=== PATIENT | male | born 1985 | race African-American/Black ===

== ENCOUNTER 2017-09-13 13:06 | Outpatient (CLI) | payer BC ==
[2017-09-13 19:16] LABS: BASOPHILS % (AUTO) 0.7 % (0.0-2.0); HEMATOCRIT 45 % (39-51); HEMOGLOBIN 15.2 g/dL (13.5-17.5); LYMPHOCYTES # (AUTO) 3.2 /CMM (0.8-4.8); LYMPHOCYTES % (AUTO) 51.2 % (20.0-44.0); MEAN CORPUSCULAR HGB CONC 34 g/dl (31.0-36.0); MEAN CORPUSCULAR VOLUME 84 fL (80-96); MONOCYTES # (AUTO) 0.5 /CMM (0.1-1.30); MONOCYTES % (AUTO) 7.5 % (2.0-12.0); NEUTROPHILS # (AUTO) 2.2 /CMM (1.8-8.9); NEUTROPHILS % (AUTO) 35.6 % (43.0-81.0); PLATELET COUNT (AUTO) 270 /CMM (150-450); RDW COEFFICIENT OF VARIATION 12.8 (11.5-15.0); RED BLOOD CELL COUNT(AUTO) 5.37 MIL/uL (4.5-6.0); WHITE BLOOD COUNT (AUTO) 6.2 K/uL (4.3-11.0)
[2017-09-13 19:25] LABS: APPEARANCE,URINE CLEAR (CLEAR); BILIRUBIN,URINE NEGATIVE (NEGATIVE); BLOOD, URINE NEGATIVE Ery/uL (NEGATIVE); COLOR,URINE YELLOW (YELLOW); KETONES,URINE NEGATIVE (NEGATIVE); LEUKOCYTE ESTERASE ,URINE NEGATIVE (NEGATIVE); NITRITE, URINE NEGATIVE (NEGATIVE); PROTEIN,URINE NEGATIVE (NEGATIVE); UGLUCOSE NEGATIVE (NEGATIVE); UROBILINOGEN,URINE 0.2 EU/dL (0.2)
[2017-09-13 19:32] LABS: ALBUMIN 4.1 g/dL (3.4-5.0); BILIRUBIN,TOTAL 1.1 mg/dL (0.2-1.0); CALCIUM, SERUM 9.4 mg/dL (8.5-10.1); CREATININE 0.4 mg/dL (0.6-1.3); POTASSIUM 3.7 mmol/L (3.5-5.1)
== END 2017-09-13 23:59 | disposition home or self-care (01) ==
LOC: LAB 13:06
PROVIDERS: ATTEND Internal Medicine
DX: Z00.01 Encounter for general adult medical examination with abnormal findings (principal); R79.89 Other specified abnormal findings of blood chemistry
CPT/HCPCS: 36415; 80053-TC; 80061-TC; 81000-TC; 82306; 85025-TC

== ENCOUNTER 2018-05-19 11:22 | Outpatient (CLI) | payer BC | END 2018-05-19 23:59 | disposition home or self-care (01) | LOC: MRI 11:22 | PROVIDERS: ATTEND Internal Medicine | DX: M48.07 Spinal stenosis, lumbosacral region (principal); M51.24 Other intervertebral disc displacement, thoracic region | CPT/HCPCS: 72146-TC; 72148-TC ==

== ENCOUNTER 2018-07-01 16:22 | Outpatient (CLI) | payer BC ==
[2018-07-02 11:10] LABS: VARICELLA ZOSTER IgG 754 index (Immune >165)
== END 2018-07-01 23:59 | disposition home or self-care (01) ==
LOC: LAB 16:22
PROVIDERS: ATTEND Internal Medicine
DX: Z11.59 Encounter for screening for other viral diseases (principal)
CPT/HCPCS: 36415; 86706; 86765; 86787; 87340

== ENCOUNTER 2019-11-03 01:25 | Emergency (ER) | payer BC, OTHER ==
[~2019-11-03] VITALS: Ht 172.7 cm; Wt 77.1 kg
[2019-11-03 01:28] VITALS: BP 118/75
== END 2019-11-03 02:18 | disposition home or self-care (01) ==
LOC: ER 01:30
DX: Z11.59 Encounter for screening for other viral diseases (principal)
CPT/HCPCS: 99283; U0003

== ENCOUNTER 2019-11-24 23:14 | Emergency (ER) | payer OTHER ==
[~2019-11-24] VITALS: Ht 172.7 cm; Wt 77.1 kg
[2019-11-24 23:18] VITALS: BP 121/79
[2019-11-24] MEDS: RALTEGRAVIR POTASSIUM 400 MG TABLET PO ONE (23:30)
[2019-11-24] MEDS ORDERED: EMTRICITABINE/TENOFOVIR 1 TAB PO ONE (23:30)
[2019-11-25] MEDS: RALTEGRAVIR POTASSIUM 400 MG TABLET PO ONE (07:43)
[2019-11-25] MEDS ORDERED: EMTRICITABINE 200 MG CAPSULE PO ONE (08:00)
[2019-11-25] MEDS ORDERED: TENOFOVIR DISOPROXIL FUMARATE 300 MG TABLET PO ONE (08:00)
== END 2019-11-25 01:25 | disposition home or self-care (01) ==
LOC: ER 23:17
DX: Z00.8 Encounter for other general examination (principal); Y08.89XA Assault by other specified means, initial encounter; Y93.89 Activity, other specified; Y92.89 Other specified places as the place of occurrence of the external cause; Y99.8 Other external cause status
CPT/HCPCS: 36415; 86706; 86803; 87340; 87806

== ENCOUNTER 2019-12-01 01:00 | Emergency (ER) | payer OTHER ==
[~2019-12-01] VITALS: Ht 172.7 cm; Wt 77.1 kg
[2019-12-01 01:42] VITALS: BP 111/60
== END 2019-12-01 02:00 | disposition home or self-care (01) ==
LOC: ER 01:01
DX: Z11.59 Encounter for screening for other viral diseases (principal)
CPT/HCPCS: 99283; C9803; U0003

== ENCOUNTER 2019-12-08 00:48 | Emergency (ER) | payer OTHER ==
[~2019-12-08] VITALS: Ht 172.7 cm; Wt 77.1 kg
[2019-12-08 00:51] VITALS: BP 122/68
== END 2019-12-08 01:06 | disposition home or self-care (01) ==
LOC: ER 00:51
DX: Z11.59 Encounter for screening for other viral diseases (principal)
CPT/HCPCS: 99283; C9803; U0003

== ENCOUNTER 2019-12-22 01:01 | Emergency (ER) | payer OTHER ==
[~2019-12-22] VITALS: Ht 172.7 cm; Wt 77.1 kg
[2019-12-22 01:06] VITALS: BP 131/85
--- NOTE | 2019-12-22 01:31 | NUR ---
COVID SWAB SENT TO LAB
== END 2019-12-22 01:32 | disposition home or self-care (01) ==
LOC: ER 01:02
DX: Z03.818 Encounter for observation for suspected exposure to other biological agents ruled out (principal)
CPT/HCPCS: 99283; C9803; U0003

== ENCOUNTER 2019-12-22 07:55 | Outpatient (CLI) | payer BC ==
[2019-12-22 09:30] LABS: APPEARANCE,URINE CLEAR (CLEAR); BILIRUBIN,URINE NEGATIVE (NEGATIVE); BLOOD, URINE NEGATIVE Ery/uL (NEGATIVE); COLOR,URINE YELLOW (YELLOW); KETONES,URINE NEGATIVE (NEGATIVE); LEUKOCYTE ESTERASE ,URINE NEGATIVE (NEGATIVE); NITRITE, URINE NEGATIVE (NEGATIVE); PH,URINE 5.5 (5.0-8.0); PROTEIN,URINE NEGATIVE (NEGATIVE); UGLUCOSE NEGATIVE (NEGATIVE); UROBILINOGEN,URINE 0.2 EU/dL (0.2)
[2019-12-22 09:47] LABS: BASOPHILS % (AUTO) 0.7 % (0.0-2.0); EOSINOPHILS % (AUTO) 1.5 % (0.0-6.0); HEMATOCRIT 43 % (39-51); HEMOGLOBIN 14.1 g/dL (13.5-17.5); LYMPHOCYTES # (AUTO) 2.2 /CMM (0.8-4.8); LYMPHOCYTES % (AUTO) 52.9 % (20.0-44.0); MEAN CORPUSCULAR HGB CONC 33 g/dl (31.0-36.0); MEAN CORPUSCULAR VOLUME 87 fL (80-96); MONOCYTES # (AUTO) 0.3 /CMM (0.1-1.30); MONOCYTES % (AUTO) 7.2 % (2.0-12.0); NEUTROPHILS # (AUTO) 1.5 /CMM (1.8-8.9); NEUTROPHILS % (AUTO) 37.7 % (43.0-81.0); PLATELET COUNT (AUTO) 236 /CMM (150-450); RED BLOOD CELL COUNT(AUTO) 4.96 MIL/uL (4.5-6.0); WHITE BLOOD COUNT (AUTO) 4.1 K/uL (4.3-11.0)
[2019-12-22 09:52] LABS: ALBUMIN 3.8 g/dL (3.4-5.0); BILIRUBIN,TOTAL 0.7 mg/dL (0.2-1.0); CALCIUM, SERUM 9.2 mg/dL (8.5-10.1); CREATININE 1.2 mg/dL (0.6-1.3); MAGNESIUM 1.9 mg/dL (1.8-2.4); TOTAL PROTEIN, SERUM 7.3 g/dL (6.4-8.2)
== END 2019-12-22 23:59 | disposition home or self-care (01) ==
LOC: LAB 07:55
DX: E83.59 Other disorders of calcium metabolism (principal); J30.9 Allergic rhinitis, unspecified; Z13.220 Encounter for screening for lipoid disorders
CPT/HCPCS: 36415; 80053-TC; 80061-TC; 81000-TC; 83735-TC; 85025-TC; 87340

== ENCOUNTER 2019-12-29 02:15 | Emergency (ER) | payer BC, OTHER ==
[~2019-12-29] VITALS: Ht 172.7 cm; Wt 77.1 kg
[2019-12-29 02:16] VITALS: BP 122/84
== END 2019-12-29 02:38 | disposition home or self-care (01) ==
LOC: ER 02:15
DX: Z11.59 Encounter for screening for other viral diseases (principal)
CPT/HCPCS: 99283; C9803; U0003

== ENCOUNTER 2020-01-05 01:03 | Emergency (ER) | payer OTHER ==
[~2020-01-05] VITALS: Ht 172.7 cm; Wt 77.1 kg
[2020-01-05 01:04] VITALS: BP 122/63
--- NOTE | 2020-01-05 01:39 | NUR ---
COVID SWAB DONE AND SENT TO LAB.
== END 2020-01-05 01:39 | disposition home or self-care (01) ==
LOC: ER 01:04
DX: Z11.59 Encounter for screening for other viral diseases (principal)
CPT/HCPCS: 99283; C9803; U0003

== ENCOUNTER 2020-01-17 01:39 | Emergency (ER) | payer OTHER ==
[~2020-01-17] VITALS: Ht 172.7 cm; Wt 77.1 kg
[2020-01-17 01:40] VITALS: BP 132/64
--- NOTE | 2020-01-17 01:59 | NUR ---
COVID SWAB COLLECTED AND SENT TO LAB.
== END 2020-01-17 01:59 | disposition home or self-care (01) ==
LOC: ER 01:39
DX: Z20.828 Contact with and (suspected) exposure to other viral communicable diseases (principal)
CPT/HCPCS: 99283; C9803; U0003

== ENCOUNTER → 2020-01-22 | Outpatient (CLI) | payer BC ==
[2020-01-22 13:15] LABS: BASOPHILS # (AUTO) 0.1 /CMM (0.0-0.2); BASOPHILS % (AUTO) 1.8 % (0.0-2.0); EOSINOPHILS % (AUTO) 2.7 % (0.0-6.0); HEMATOCRIT 45 % (39-51); HEMOGLOBIN 14.9 g/dL (13.5-17.5); LYMPHOCYTES # (AUTO) 2.5 /CMM (0.8-4.8); LYMPHOCYTES % (AUTO) 49.6 % (20.0-44.0); MEAN CORPUSCULAR HGB CONC 33 g/dl (31.0-36.0); MEAN CORPUSCULAR VOLUME 87 fL (80-96); MONOCYTES # (AUTO) 0.4 /CMM (0.1-1.30); MONOCYTES % (AUTO) 8.4 % (2.0-12.0); NEUTROPHILS # (AUTO) 1.8 /CMM (1.8-8.9); NEUTROPHILS % (AUTO) 37.5 % (43.0-81.0); PLATELET COUNT (AUTO) 247 /CMM (150-450); WHITE BLOOD COUNT (AUTO) 4.9 K/uL (4.3-11.0)
== END | disposition home or self-care (01) ==
LOC: LAB 12:17
DX: R68.89 Other general symptoms and signs (principal)
CPT/HCPCS: 36415; 85025-TC

== ENCOUNTER 2020-01-26 01:34 | Emergency (ER) | payer BC, OTHER ==
[~2020-01-26] VITALS: Ht 172.7 cm; Wt 77.1 kg
[2020-01-26 01:35] VITALS: BP 127/64
--- NOTE | 2020-01-26 01:50 | NUR ---
COVID SWAB DONE AND SENT TO LAB.
== END 2020-01-26 01:51 | disposition home or self-care (01) ==
LOC: ER 01:35
DX: Z20.828 Contact with and (suspected) exposure to other viral communicable diseases (principal)
CPT/HCPCS: 99283; C9803; U0003

== ENCOUNTER 2020-02-16 01:59 | Emergency (ER) | payer OTHER ==
[~2020-02-16] VITALS: Ht 172.7 cm; Wt 77.1 kg
[2020-02-16 02:00] VITALS: BP 129/68
== END 2020-02-16 02:11 | disposition home or self-care (01) ==
LOC: ER 02:00
DX: Z20.828 Contact with and (suspected) exposure to other viral communicable diseases (principal)
CPT/HCPCS: 99283; C9803; U0003

== ENCOUNTER 2020-02-23 00:23 | Emergency (ER) | payer OTHER | END 2020-02-23 00:46 | disposition home or self-care (01) | DX: Z20.828 Contact with and (suspected) exposure to other viral communicable diseases (principal) | CPT/HCPCS: 99283; C9803; U0003 ==

== ENCOUNTER 2020-03-05 23:42 | Emergency (ER) | payer OTHER ==
[~2020-03-05] VITALS: Ht 172.7 cm; Wt 77.1 kg
[2020-03-05 23:43] VITALS: BP 132/63
== END 2020-03-06 00:04 | disposition home or self-care (01) ==
LOC: ER 23:46
DX: Z20.828 Contact with and (suspected) exposure to other viral communicable diseases (principal)
CPT/HCPCS: 99283; C9803; U0003

== ENCOUNTER 2020-03-14 01:37 | Emergency (ER) | payer OTHER ==
[~2020-03-14] VITALS: Ht 172.7 cm; Wt 77.1 kg
[2020-03-14 01:38] VITALS: BP 117/84
--- NOTE | 2020-03-14 02:01 | NUR ---
COVID SWAB SAMPLE COLLECTED AND SENT TO THE LAB.
--- NOTE | 2020-03-14 02:01 | NUR ---
Patient discharged to home in stable condition. Written and verbal after care instructions given. Patient verbalizes understanding of instruction.
== END 2020-03-14 02:04 | disposition home or self-care (01) ==
LOC: ER 01:38
DX: Z20.828 Contact with and (suspected) exposure to other viral communicable diseases (principal)
CPT/HCPCS: 99283; C9803; U0003

== ENCOUNTER 2020-03-21 01:43 | Emergency (ER) | payer OTHER ==
[~2020-03-21] VITALS: Ht 177.8 cm; Wt 77.1 kg
[2020-03-21 01:44] VITALS: BP 131/77
== END 2020-03-21 03:18 | disposition home or self-care (01) ==
LOC: ER 01:44
DX: Z20.828 Contact with and (suspected) exposure to other viral communicable diseases (principal)
CPT/HCPCS: 99283; C9803; U0003

== ENCOUNTER 2020-03-28 01:11 | Emergency (ER) | payer OTHER ==
[~2020-03-28] VITALS: Ht 177.8 cm; Wt 77.1 kg
[2020-03-28 01:13] VITALS: BP 122/68
--- NOTE | 2020-03-28 01:38 | NUR ---
covid swab collected. sent to lab
== END 2020-03-28 01:52 | disposition home or self-care (01) ==
LOC: ER 01:12
DX: Z20.828 Contact with and (suspected) exposure to other viral communicable diseases (principal)
CPT/HCPCS: 99283; C9803; U0003

== ENCOUNTER 2020-04-04 01:03 | Emergency (ER) | payer OTHER ==
[~2020-04-04] VITALS: Ht 177.8 cm; Wt 77.1 kg
[2020-04-04 01:06] VITALS: BP 119/79
== END 2020-04-04 01:22 | disposition home or self-care (01) ==
LOC: ER 01:04
DX: Z20.828 Contact with and (suspected) exposure to other viral communicable diseases (principal)
CPT/HCPCS: 99283; C9803; U0003

== ENCOUNTER 2020-04-11 00:36 | Emergency (ER) | payer OTHER ==
[~2020-04-11] VITALS: Ht 177.8 cm; Wt 77.1 kg
[2020-04-11 00:38] VITALS: BP 118/64
== END 2020-04-11 00:54 | disposition home or self-care (01) ==
LOC: ER 00:38
DX: Z20.828 Contact with and (suspected) exposure to other viral communicable diseases (principal)
CPT/HCPCS: 99283; C9803; U0003

== ENCOUNTER 2020-04-18 01:23 | Emergency (ER) | payer OTHER ==
[~2020-04-18] VITALS: Ht 177.8 cm; Wt 77.1 kg
[2020-04-18 01:26] VITALS: BP 119/76
== END 2020-04-18 01:36 | disposition home or self-care (01) ==
LOC: ER 01:26
DX: Z20.828 Contact with and (suspected) exposure to other viral communicable diseases (principal)
CPT/HCPCS: 99283; C9803; U0003

== ENCOUNTER 2020-04-25 07:01 | Emergency (ER) | payer OTHER ==
[~2020-04-25] VITALS: Ht 175.3 cm; Wt 81.6 kg
[2020-04-25 07:05] VITALS: BP 135/81
--- NOTE | 2020-04-25 07:10 | NUR ---
covid 19 swab collected and sent to lab
--- NOTE | 2020-04-25 07:22 | NUR ---
Patient discharged to home in stable condition. Written and verbal after care instructions given. Patient verbalizes understanding of instruction.
== END 2020-04-25 07:22 | disposition home or self-care (01) ==
LOC: ER 07:03
DX: Z20.828 Contact with and (suspected) exposure to other viral communicable diseases (principal)
CPT/HCPCS: 99283; C9803; U0003

== ENCOUNTER 2020-05-09 01:12 | Emergency (ER) | payer OTHER ==
[~2020-05-09] VITALS: Ht 175.3 cm; Wt 79.4 kg
[2020-05-09 01:20] VITALS: BP 126/78
--- NOTE | 2020-05-09 01:42 | NUR ---
covid swab collected. sent to lab
== END 2020-05-09 01:43 | disposition home or self-care (01) ==
LOC: ER 01:12
DX: Z20.828 Contact with and (suspected) exposure to other viral communicable diseases (principal)
CPT/HCPCS: 99283; C9803; U0003

== ENCOUNTER 2020-05-16 01:22 | Emergency (ER) | payer OTHER ==
[~2020-05-16] VITALS: Ht 175.3 cm; Wt 79.4 kg
[2020-05-16 01:25] VITALS: BP 132/61
== END 2020-05-16 01:34 | disposition home or self-care (01) ==
LOC: ER 01:25
DX: Z20.828 Contact with and (suspected) exposure to other viral communicable diseases (principal)
CPT/HCPCS: 99283; C9803; U0003

== ENCOUNTER 2020-05-24 01:59 | Emergency (ER) | payer OTHER ==
[~2020-05-24] VITALS: Ht 175.3 cm; Wt 79.4 kg
[2020-05-24 02:07] VITALS: BP 116/84
== END 2020-05-24 02:20 | disposition home or self-care (01) ==
LOC: ER 02:05
DX: Z20.828 Contact with and (suspected) exposure to other viral communicable diseases (principal)
CPT/HCPCS: 99283; C9803; U0003

== ENCOUNTER 2020-05-25 03:06 | Emergency (ER) | payer BC, OTHER ==
[~2020-05-25] VITALS: Ht 175.3 cm; Wt 79.4 kg
[2020-05-25 03:06] VITALS: BP 134/86
== END 2020-05-25 03:22 | disposition home or self-care (01) ==
LOC: ER 03:10
DX: Z20.828 Contact with and (suspected) exposure to other viral communicable diseases (principal)
CPT/HCPCS: 99283; C9803; U0003

== ENCOUNTER 2020-05-25 08:30 | Outpatient (CLI) | payer BC | END 2020-05-25 23:59 | disposition home or self-care (01) | LOC: US 08:30 | DX: N50.3 Cyst of epididymis (principal) | CPT/HCPCS: 76870-TC ==

== ENCOUNTER 2020-05-30 01:33 | Emergency (ER) | payer OTHER, BC ==
[~2020-05-30] VITALS: Ht 175.3 cm; Wt 79.4 kg
[2020-05-30 01:41] VITALS: BP 128/79
== END 2020-05-30 01:57 | disposition home or self-care (01) ==
LOC: ER 01:40
DX: Z20.828 Contact with and (suspected) exposure to other viral communicable diseases (principal)
CPT/HCPCS: 99283; C9803; U0003

== ENCOUNTER 2020-06-03 02:19 | Emergency (ER) | payer OTHER, BC ==
[~2020-06-03] VITALS: Ht 175.3 cm; Wt 79.4 kg
[2020-06-03 02:22] VITALS: BP 129/85
== END 2020-06-03 03:11 | disposition home or self-care (01) ==
LOC: ER 02:22
DX: Z20.828 Contact with and (suspected) exposure to other viral communicable diseases (principal)
CPT/HCPCS: 99283; C9803; U0003

== ENCOUNTER 2020-06-05 04:41 | Emergency (ER) | payer OTHER, BC ==
[~2020-06-05] VITALS: Ht 175.3 cm; Wt 79.4 kg
[2020-06-05 04:42] VITALS: BP 131/80
== END 2020-06-05 05:12 | disposition home or self-care (01) ==
LOC: ER 04:50
DX: Z20.828 Contact with and (suspected) exposure to other viral communicable diseases (principal)
CPT/HCPCS: 99283; C9803; U0003

== ENCOUNTER 2020-06-07 00:50 | Emergency (ER) | payer BC, OTHER ==
[~2020-06-07] VITALS: Ht 175.3 cm; Wt 79.4 kg
[2020-06-07 00:53] VITALS: BP 134/67
--- NOTE | 2020-06-07 23:55 | NUR ---
LAB CALLED REGARDING NEGATIVE COVID RESULT.
== END 2020-06-07 01:16 | disposition home or self-care (01) ==
LOC: ER 00:52
DX: Z20.822 Contact with and (suspected) exposure to COVID-19 (principal)
CPT/HCPCS: 99283; C9803; U0003; J3490

== ENCOUNTER 2020-06-13 03:13 | Emergency (ER) | payer OTHER ==
[~2020-06-13] VITALS: Ht 175.3 cm; Wt 79.4 kg
[2020-06-13 03:20] VITALS: BP 134/70
== END 2020-06-13 03:36 | disposition home or self-care (01) ==
LOC: ER 03:19
DX: Z20.822 Contact with and (suspected) exposure to COVID-19 (principal)
CPT/HCPCS: 99283; C9803; U0003

== ENCOUNTER 2020-06-14 02:40 | Emergency (ER) | payer OTHER ==
[~2020-06-14] VITALS: Ht 175.3 cm; Wt 79.4 kg
[2020-06-14 02:45] VITALS: BP 129/86
== END 2020-06-14 02:55 | disposition home or self-care (01) ==
LOC: ER 02:44
DX: Z20.822 Contact with and (suspected) exposure to COVID-19 (principal)
CPT/HCPCS: 99283; C9803; U0003

== ENCOUNTER 2020-06-19 01:37 | Emergency (ER) | payer OTHER ==
[~2020-06-19] VITALS: Ht 175.3 cm; Wt 79.4 kg
[2020-06-19 01:38] VITALS: BP 132/67
== END 2020-06-19 01:49 | disposition home or self-care (01) ==
LOC: ER 01:41
DX: Z20.822 Contact with and (suspected) exposure to COVID-19 (principal)
CPT/HCPCS: 99283; C9803; U0003

== ENCOUNTER 2020-06-21 01:05 | Emergency (ER) | payer OTHER ==
[~2020-06-21] VITALS: Ht 175.3 cm; Wt 79.4 kg
[2020-06-21 01:14] VITALS: BP 119/68
== END 2020-06-21 01:27 | disposition home or self-care (01) ==
LOC: ER 01:07
DX: Z20.822 Contact with and (suspected) exposure to COVID-19 (principal)
CPT/HCPCS: 99283; C9803; U0003

== ENCOUNTER 2020-06-28 00:59 | Emergency (ER) | payer OTHER ==
[~2020-06-28] VITALS: Ht 172.7 cm; Wt 86.2 kg
[2020-06-28 00:59] VITALS: BP 125/63
== END 2020-06-28 01:17 | disposition home or self-care (01) ==
LOC: ER 01:02
DX: Z20.822 Contact with and (suspected) exposure to COVID-19 (principal)
CPT/HCPCS: 99283; C9803; U0003

== ENCOUNTER 2020-07-02 20:56 | Emergency (ER) | payer OTHER ==
[~2020-07-02] VITALS: Ht 172.7 cm; Wt 86.2 kg
[2020-07-02 20:58] VITALS: BP 135/79
[2020-07-02] MEDS ORDERED: hydrALAZINE HCL IV 20 MG VIAL IV ONE (21:30)
== END 2020-07-02 21:28 | disposition home or self-care (01) ==
LOC: ER 20:57
DX: Z20.822 Contact with and (suspected) exposure to COVID-19 (principal)
CPT/HCPCS: 99283; C9803; U0003

== ENCOUNTER 2020-07-10 01:43 | Emergency (ER) | payer OTHER ==
[~2020-07-10] VITALS: Ht 172.7 cm; Wt 86.2 kg
[2020-07-10 01:55] VITALS: BP 134/75
== END 2020-07-10 02:08 | disposition home or self-care (01) ==
LOC: ER 01:45
DX: Z20.822 Contact with and (suspected) exposure to COVID-19 (principal)
CPT/HCPCS: 99283; C9803; U0003

== ENCOUNTER 2020-07-17 03:47 | Emergency (ER) | payer OTHER ==
[~2020-07-17] VITALS: Ht 172.7 cm; Wt 77.1 kg
[2020-07-17 03:48] VITALS: BP 133/61
== END 2020-07-17 03:59 | disposition home or self-care (01) ==
LOC: ER 03:51
DX: Z20.822 Contact with and (suspected) exposure to COVID-19 (principal)
CPT/HCPCS: 99283; C9803; U0003

== ENCOUNTER 2020-07-18 01:27 | Emergency (ER) | payer OTHER ==
[~2020-07-18] VITALS: Ht 172.7 cm; Wt 77.1 kg
[2020-07-18 01:27] VITALS: BP 124/77
== END 2020-07-18 03:33 | disposition home or self-care (01) ==
LOC: ER 01:31
DX: Z20.822 Contact with and (suspected) exposure to COVID-19 (principal)
CPT/HCPCS: 99283; C9803; U0003

== ENCOUNTER 2020-07-19 01:15 | Emergency (ER) | payer OTHER ==
[~2020-07-19] VITALS: Ht 172.7 cm; Wt 77.1 kg
[2020-07-19 01:17] VITALS: BP 128/83
== END 2020-07-19 01:54 | disposition home or self-care (01) ==
LOC: ER 01:19
DX: Z20.822 Contact with and (suspected) exposure to COVID-19 (principal)
CPT/HCPCS: 99283; C9803; U0003

== ENCOUNTER 2020-07-24 01:12 | Emergency (ER) | payer OTHER ==
[~2020-07-24] VITALS: Ht 172.7 cm; Wt 77.1 kg
[2020-07-24 01:12] VITALS: BP 118/75
== END 2020-07-24 01:46 | disposition home or self-care (01) ==
LOC: ER 01:16
DX: Z20.822 Contact with and (suspected) exposure to COVID-19 (principal)
CPT/HCPCS: 99283; C9803; U0003

== ENCOUNTER 2020-07-31 01:16 | Emergency (ER) | payer OTHER ==
[~2020-07-31] VITALS: Ht 172.7 cm; Wt 77.1 kg
[2020-07-31 01:16] VITALS: BP 119/64
== END 2020-07-31 02:02 | disposition home or self-care (01) ==
LOC: ER 01:19
DX: Z13.89 Encounter for screening for other disorder (principal); Z20.822 Contact with and (suspected) exposure to COVID-19
CPT/HCPCS: 99283; C9803; U0003

== ENCOUNTER 2020-08-07 01:46 | Emergency (ER) | payer OTHER ==
[~2020-08-07] VITALS: Ht 172.7 cm; Wt 77.1 kg
[2020-08-07 01:46] VITALS: BP 124/67
== END 2020-08-07 02:05 | disposition home or self-care (01) ==
LOC: ER 01:46
DX: Z20.822 Contact with and (suspected) exposure to COVID-19 (principal)
CPT/HCPCS: 99283; C9803; U0003

== ENCOUNTER 2020-08-14 01:28 | Emergency (ER) | payer OTHER ==
[~2020-08-14] VITALS: Ht 170.2 cm; Wt 77.1 kg
[2020-08-14 01:29] VITALS: BP 126/76
== END 2020-08-14 01:47 | disposition home or self-care (01) ==
LOC: ER 01:31
DX: Z20.822 Contact with and (suspected) exposure to COVID-19 (principal)
CPT/HCPCS: 99283; C9803; U0003

== ENCOUNTER 2020-08-21 02:01 | Emergency (ER) | payer OTHER ==
[~2020-08-21] VITALS: Ht 170.2 cm; Wt 77.1 kg
[2020-08-21 02:04] VITALS: BP 128/79
== END 2020-08-21 02:26 | disposition home or self-care (01) ==
LOC: ER 02:06
DX: Z20.822 Contact with and (suspected) exposure to COVID-19 (principal)
CPT/HCPCS: 99283; C9803; U0003

== ENCOUNTER 2020-08-30 01:49 | Emergency (ER) | payer OTHER ==
[~2020-08-30] VITALS: Ht 170.2 cm; Wt 77.1 kg
[2020-08-30 01:49] VITALS: BP 124/66
== END 2020-08-30 02:54 | disposition home or self-care (01) ==
LOC: ER 01:53
DX: Z20.822 Contact with and (suspected) exposure to COVID-19 (principal)
CPT/HCPCS: 99283; C9803; U0003

== ENCOUNTER 2020-09-04 01:37 | Emergency (ER) | payer OTHER ==
[~2020-09-04] VITALS: Ht 170.2 cm; Wt 77.1 kg
[2020-09-04 01:38] VITALS: BP 134/79
== END 2020-09-04 01:56 | disposition home or self-care (01) ==
LOC: ER 01:38
DX: Z20.822 Contact with and (suspected) exposure to COVID-19 (principal)
CPT/HCPCS: 99283; C9803; U0003

== ENCOUNTER 2020-09-11 01:11 | Emergency (ER) | payer OTHER ==
[~2020-09-11] VITALS: Ht 177.8 cm; Wt 77.1 kg
[2020-09-11 01:14] VITALS: BP 132/61
== END 2020-09-11 01:29 | disposition home or self-care (01) ==
LOC: ER 01:13
DX: Z20.822 Contact with and (suspected) exposure to COVID-19 (principal)
CPT/HCPCS: 99283; C9803; U0003

== ENCOUNTER 2020-09-18 01:24 | Emergency (ER) | payer OTHER ==
[~2020-09-18] VITALS: Ht 175.3 cm; Wt 79.4 kg
[2020-09-18 01:24] VITALS: BP 121/75
== END 2020-09-18 01:54 | disposition home or self-care (01) ==
LOC: ER 01:26
DX: Z20.822 Contact with and (suspected) exposure to COVID-19 (principal)
CPT/HCPCS: 99283; C9803; U0003

== ENCOUNTER 2020-09-25 01:53 | Emergency (ER) | payer OTHER ==
[~2020-09-25] VITALS: Ht 170.2 cm; Wt 77.1 kg
[2020-09-25 01:55] VITALS: BP 119/73
== END 2020-09-25 02:16 | disposition home or self-care (01) ==
LOC: ER 01:54
DX: Z20.822 Contact with and (suspected) exposure to COVID-19 (principal)
CPT/HCPCS: 99283; C9803; U0003

== ENCOUNTER 2020-10-02 01:25 | Emergency (ER) | payer OTHER ==
[~2020-10-02] VITALS: Ht 170.2 cm; Wt 77.1 kg
[2020-10-02 01:25] VITALS: BP 126/66
== END 2020-10-02 01:43 | disposition home or self-care (01) ==
LOC: ER 01:26
DX: Z20.822 Contact with and (suspected) exposure to COVID-19 (principal)
CPT/HCPCS: 99283; C9803; U0003

== ENCOUNTER 2020-10-09 01:47 | Emergency (ER) | payer OTHER ==
[~2020-10-09] VITALS: Ht 170.2 cm; Wt 77.1 kg
[2020-10-09 01:47] VITALS: BP 121/64
== END 2020-10-09 02:37 | disposition home or self-care (01) ==
LOC: ER 01:50
DX: Z20.822 Contact with and (suspected) exposure to COVID-19 (principal)
CPT/HCPCS: 99283; C9803; U0003

== ENCOUNTER → 2020-10-16 | Emergency (ER) | payer OTHER ==
[~2020-10-16] VITALS: Ht 170.2 cm; Wt 77.1 kg
[2020-10-16 01:24] VITALS: BP 122/60
== END | disposition home or self-care (01) ==
LOC: ER 01:29
DX: Z20.822 Contact with and (suspected) exposure to COVID-19 (principal)
CPT/HCPCS: 99283; C9803; U0003

== ENCOUNTER 2020-10-23 04:15 | Emergency (ER) | payer OTHER ==
[~2020-10-23] VITALS: Ht 170.2 cm; Wt 77.1 kg
[2020-10-23 04:15] VITALS: BP 128/85
== END 2020-10-23 05:04 | disposition home or self-care (01) ==
LOC: ER 04:17
DX: Z20.822 Contact with and (suspected) exposure to COVID-19 (principal)
CPT/HCPCS: 99283; C9803; U0003

== ENCOUNTER 2020-10-30 01:19 | Emergency (ER) | payer OTHER ==
[~2020-10-30] VITALS: Ht 170.2 cm; Wt 77.1 kg
[2020-10-30 01:20] VITALS: BP 124/67
== END 2020-10-30 01:42 | disposition home or self-care (01) ==
LOC: ER 01:20
DX: Z20.822 Contact with and (suspected) exposure to COVID-19 (principal)
CPT/HCPCS: 99283; C9803; U0003

== ENCOUNTER 2020-11-06 00:58 | Emergency (ER) | payer OTHER ==
[~2020-11-06] VITALS: Ht 175.3 cm; Wt 79.4 kg
[2020-11-06 00:58] VITALS: BP 119/70
== END 2020-11-06 01:22 | disposition home or self-care (01) ==
LOC: ER 00:58
DX: Z20.822 Contact with and (suspected) exposure to COVID-19 (principal)
CPT/HCPCS: 99283; C9803; U0003

== ENCOUNTER 2020-11-14 02:24 | Emergency (ER) | payer OTHER ==
[~2020-11-14] VITALS: Ht 175.3 cm; Wt 79.4 kg
[2020-11-14 02:30] VITALS: BP 113/63
== END 2020-11-14 03:25 | disposition home or self-care (01) ==
LOC: ER 02:30
DX: Z20.822 Contact with and (suspected) exposure to COVID-19 (principal)
CPT/HCPCS: 99283; C9803; U0003

== ENCOUNTER 2020-11-21 03:36 | Emergency (ER) | payer OTHER ==
[~2020-11-21] VITALS: Ht 175.3 cm; Wt 79.4 kg
[2020-11-21 03:37] VITALS: BP 134/79
== END 2020-11-21 04:03 | disposition home or self-care (01) ==
LOC: ER 03:38
DX: Z20.822 Contact with and (suspected) exposure to COVID-19 (principal)
CPT/HCPCS: 99283; C9803; U0003

== ENCOUNTER 2020-12-26 08:05 | Emergency (ER) | payer OTHER ==
[~2020-12-26] VITALS: Ht 175.3 cm; Wt 79.4 kg
[2020-12-26 08:12] VITALS: BP 118/71
--- NOTE | 2020-12-26 08:32 | NUR ---
Patient discharged to home in stable condition. Written and verbal after care instructions given. Patient verbalizes understanding of instruction.
== END 2020-12-26 08:32 | disposition home or self-care (01) ==
LOC: ER 08:07
DX: Z20.822 Contact with and (suspected) exposure to COVID-19 (principal)
CPT/HCPCS: 99283; C9803; U0003

== ENCOUNTER 2021-02-13 22:46 | Emergency (ER) | payer OTHER ==
[~2021-02-13] VITALS: Ht 177.8 cm; Wt 81.6 kg
[2021-02-13 22:52] VITALS: BP 128/72
== END 2021-02-13 23:30 | disposition home or self-care (01) ==
LOC: ER 22:47
DX: Z20.822 Contact with and (suspected) exposure to COVID-19 (principal)
CPT/HCPCS: 99283; C9803; U0003

== ENCOUNTER 2021-02-20 01:59 | Emergency (ER) | payer OTHER ==
[~2021-02-20] VITALS: Ht 177.8 cm; Wt 81.6 kg
[2021-02-20 02:00] VITALS: BP 133/74
== END 2021-02-20 02:22 | disposition home or self-care (01) ==
LOC: ER 02:05
DX: Z20.822 Contact with and (suspected) exposure to COVID-19 (principal)
CPT/HCPCS: 99283; C9803; U0003

== ENCOUNTER 2021-05-26 19:48 | Emergency (ER) | payer OTHER ==
--- NOTE | 2021-05-26 20:14 | NUR ---
PT REQUEST FOR COVID SWAB. TOLERATING R/A WELL WITH NO SOB
--- NOTE | 2021-05-26 22:21 | NUR ---
Patient discharged to home in stable condition. Written and verbal after care instructions given. Patient verbalizes understanding of instruction.
== END 2021-05-26 22:22 | disposition home or self-care (01) ==
LOC: ER 19:50
DX: Z20.822 Contact with and (suspected) exposure to COVID-19 (principal)
CPT/HCPCS: 99283; C9803; U0003